=== PATIENT | male | born 1985 | race African-American/Black ===

== ENCOUNTER 2016-11-11 09:33 | Day surgery (SDC) | payer OTHER ==
[2016-11-11] VITALS (9 sets, daily range): BP systolic 107–118; BP diastolic 74–87; PULSE 78–115; TEMP 97.2–98.6
[~2016-11-11] VITALS: Ht 170.2 cm; Wt 84.1 kg
[2016-11-11 09:54] LABS: HEMATOCRIT 45.2 % (42.0-52.0); HEMOGLOBIN 14.7 g/dl (13.5-18.0); MEAN CELL VOLUME 98 fl (80.0-100.0); MEAN CORPUSCULAR HEMOGLOBIN 32 pg (27.0-31.0); MEAN CORPUSCULAR HGB CONC 33 g/dl (33.0-37.0); MEAN PLATELET VOLUME 9.4 fl (7.4-10.4); PLATELET COUNT 288 K/mm3 (130-400); RED BLOOD COUNT 4.63 M/mm3 (4.20-5.60); REDCELL DISTRIBUTION WIDTH-CV 12.8 % (11.5-14.5); WHITE BLOOD COUNT 9.3 K/mm3 (4.8-10.8)
[2016-11-11] MEDS ORDERED: LASIX 40MG TABL40 MG PO (09:55)
[2016-11-11] MEDS ORDERED: PRINIVIL5 MG PO (09:55)
[2016-11-11] MEDS ORDERED: TYLENOL 500MG500 MG PO (09:56)
[2016-11-11] MEDS ORDERED: CORLANOR5 MG PO (10:03)
[2016-11-11 10:09] LABS: CALCIUM 9.4 mg/dL (8.4-10.2); CREATININE, serum 1.61 mg/dL (0.66-1.25)
[2016-11-11] MEDS ORDERED: COUMADIN 5MG5 MG/TAB PO (10:20)
[2016-11-11 10:54] LABS: INR 2.8 (0.8-3.0); PROTHROMBIN TIME 32.8 SECONDS (9.7-12.8)
[2016-11-12 04:00] VITALS: BP 116/83; PULSE 103; TEMP 98.1
[2016-11-12 07:29] VITALS: BP 125/77; PULSE 62; TEMP 98.2
[2016-11-12 12:32] VITALS: BP 127/89; PULSE 62; TEMP 98
[2016-11-12] MEDS ORDERED: ENTRESTO 24 MG1 EACH PO (14:36)
[2016-11-12] MEDS ORDERED: CEPHALEXIN500 M1 PO (14:41)
== END 2016-11-12 15:18 | disposition home or self-care (01) ==
LOC: COL.CAR 09:33 → MEDICAL 14:44 → COL.CAR 11-12 15:18
PROVIDERS: Internal Medicine Cardiovascular Disease
DX: I50.22 Chronic systolic (congestive) heart failure (principal); I42.0 Dilated cardiomyopathy; I08.1 Rheumatic disorders of both mitral and tricuspid valves; Z82.49 Family history of ischemic heart disease and other diseases of the circulatory system; Z79.01 Long term (current) use of anticoagulants
CPT/HCPCS: OP; C1721; C1769; C1895; C1898; J0690; J2250; J3010; J7030

== ENCOUNTER 2016-12-15 05:36 | Emergency (ER) | payer OTHER ==
[~2016-12-15] VITALS: Ht 170.2 cm; Wt 81.8 kg
[~2016-12-15 05:36] MED LIST: CEPHALEXIN500 M1 PO; CORLANOR5 MG PO; COUMADIN 5MG5 MG/TAB PO; ENTRESTO 24 MG1 EACH PO; LASIX 40MG TABL40 MG PO; PRINIVIL5 MG PO; TYLENOL 500MG500 MG PO
[2016-12-15 05:39] VITALS: TEMP 98.2
[2016-12-15 06:26] LABS: BASO % 0.7 % (0.0-2.0); EOS # 0.1 (0.0-0.7); EOS % 0.8 % (0-4.0); GRAN # 4.2 (1.4-6.5); GRAN % 70.1 % (42.2-75.2); HEMATOCRIT 41.1 % (42.0-52.0); HEMOGLOBIN 13.7 g/dl (13.5-18.0); LYMPH # 1.2 (1.2-3.4); LYMPH % 19.9 % (20.0-51.0); MEAN CELL VOLUME 94 fl (80.0-100.0); MEAN CORPUSCULAR HEMOGLOBIN 31 pg (27.0-31.0); MEAN CORPUSCULAR HGB CONC 33 g/dl (33.0-37.0); MEAN PLATELET VOLUME 9.7 fl (7.4-10.4); MONO # 0.5 (0.1-0.6); MONO % 8.3 % (1.7-9.3); PLATELET COUNT 202 K/mm3 (130-400); RED BLOOD COUNT 4.36 M/mm3 (4.20-5.60); REDCELL DISTRIBUTION WIDTH-CV 13.3 % (11.5-14.5); WHITE BLOOD COUNT 5.9 K/mm3 (4.8-10.8)
[2016-12-15 06:30] LABS: INR 2.9 (0.8-3.0); PROTHROMBIN TIME 33.3 SECONDS (9.7-12.8)
[2016-12-15 06:32] LABS: ADJUSTED CALCIUM 9.5 mg/dL (8.4-10.2); ALBUMIN 3.2 gm/dL (3.5-5.0); BILIRUBIN,TOTAL 2.8 mg/dL (0.0-1.0); CALCIUM 8.9 mg/dL (8.4-10.2); CREATININE, serum 1.22 mg/dL (0.66-1.25); POTASSIUM 3.8 mmol/L (3.4-5.0); TOTAL PROTEIN 6.3 gm/dL (6.4-8.2)
[2016-12-15 06:52] LABS: TROPONIN-I 0.048 ng/mL (0.000-0.034)
[2016-12-15] MEDS ORDERED: ZOFRAN ODT4 MG PO (09:56)
[2016-12-15 10:10] VITALS: BP 115/77; PULSE 107
== END 2016-12-15 10:13 | disposition home or self-care (01) ==
LOC: COL.ER 05:36
PROVIDERS: Emergency Medicine
DX: R11.2 Nausea with vomiting, unspecified (principal); I25.10 Atherosclerotic heart disease of native coronary artery without angina pectoris; Z95.810 Presence of automatic (implantable) cardiac defibrillator; Z79.01 Long term (current) use of anticoagulants
CPT/HCPCS: J2550

== ENCOUNTER 2016-12-19 14:27 | Inpatient (IN) | payer OTHER ==
[~2016-12-19] VITALS: Ht 170.2 cm; Wt 83.0 kg
[~2016-12-19 14:27] MED LIST changes: +ZOFRAN ODT4 MG PO
[2016-12-19 14:34] VITALS: BP 114/73; PULSE 106; TEMP 98.5
[2016-12-19] MEDS ORDERED: CHERATUSSIN AC120 ML PO (15:20)
[2016-12-19] MEDS ORDERED: ENTRESTO 24 MG1 EACH PO (15:22)
[2016-12-19 17:33] LABS: ADD PATHOLOGY DIFF REVIEW NO
[2016-12-19 17:34] LABS: HEMATOCRIT 42.1 % (42.0-52.0); HEMOGLOBIN 13.8 g/dl (13.5-18.0); MEAN CELL VOLUME 95 fl (80.0-100.0); MEAN CORPUSCULAR HEMOGLOBIN 31 pg (27.0-31.0); MEAN CORPUSCULAR HGB CONC 33 g/dl (33.0-37.0); MEAN PLATELET VOLUME 9.1 fl (7.4-10.4); PLATELET COUNT 218 K/mm3 (130-400); RED BLOOD COUNT 4.43 M/mm3 (4.20-5.60); WHITE BLOOD COUNT 8.6 K/mm3 (4.8-10.8)
[2016-12-19 17:44] LABS: ADJUSTED CALCIUM 9.3 mg/dL (8.4-10.2); ALBUMIN 3.3 gm/dL (3.5-5.0); CALCIUM 8.7 mg/dL (8.4-10.2); CREATININE, serum 1.18 mg/dL (0.66-1.25); POTASSIUM 3.8 mmol/L (3.4-5.0); TOTAL PROTEIN 6.3 gm/dL (6.4-8.2)
[2016-12-19 18:27] LABS: BAND 1 % (0-10); METAMYELOCYTE 1 % (0-0); NEUTROPHILS 78 % (42.0-75.2); PLATELET ESTIMATE NORMAL (NORMAL); TOTAL CELLS COUNTED 100
[2016-12-19 22:00] LABS: INR 2.5 (0.8-3.0); PROTHROMBIN TIME 28.2 SECONDS (9.7-12.8)
[2016-12-19 22:20] VITALS: BP 103/68; PULSE 114; TEMP 99.2
[2016-12-20] VITALS (13 sets, daily range): BP systolic 99–140; BP diastolic 58–108; PULSE 102–121; TEMP 97.4–99.4
[2016-12-20 07:54] LABS: PROTHROMBIN TIME 22.9 SECONDS (9.7-12.8)
[2016-12-20] MEDS ORDERED: SINGULAIR 110 MG/TAB PO (19:17)
[2016-12-20] MEDS ORDERED: DETROL 2MG TAB2 MG PO (19:19)
[2016-12-20] MEDS ORDERED: KLONOPIN 0.5MG0.5 MG PO (19:21)
[2016-12-20] MEDS ORDERED: SEROQUEL 2525 MG/TAB PO (19:23)
[2016-12-20 22:17] LABS: INR 1.7 (0.8-3.0); PROTHROMBIN TIME 19.4 SECONDS (9.7-12.8)
[2016-12-21 03:33] VITALS: BP 107/61; PULSE 111; TEMP 98
[2016-12-21 07:55] LABS: INR 1.6 (0.8-3.0)
[2016-12-21 08:20] LABS: ADJUSTED CALCIUM 9.3 mg/dL (8.4-10.2); BILIRUBIN,TOTAL 3.6 mg/dL (0.0-1.0); CALCIUM 8.5 mg/dL (8.4-10.2); CREATININE, serum 1.05 mg/dL (0.66-1.25); POTASSIUM 3.7 mmol/L (3.4-5.0); TOTAL PROTEIN 6.2 gm/dL (6.4-8.2)
[2016-12-21 16:00] VITALS: BP 110/70; PULSE 107; TEMP 98.4
[2016-12-21 22:32] VITALS: BP 112/75; PULSE 106; TEMP 98.2
[2016-12-22 01:46] VITALS: BP 100/66; PULSE 101; TEMP 98.4
[2016-12-22 05:38] VITALS: BP 109/67; PULSE 106; TEMP 97.4
[2016-12-22 07:26] LABS: BASO % 0.2 % (0.0-2.0); GRAN # 10.8 (1.4-6.5); GRAN % 88.8 % (42.2-75.2); HEMATOCRIT 42.9 % (42.0-52.0); HEMOGLOBIN 13.8 g/dl (13.5-18.0); LYMPH # 0.7 (1.2-3.4); LYMPH % 5.7 % (20.0-51.0); MEAN CELL VOLUME 98 fl (80.0-100.0); MEAN CORPUSCULAR HEMOGLOBIN 31 pg (27.0-31.0); MEAN CORPUSCULAR HGB CONC 32 g/dl (33.0-37.0); MEAN PLATELET VOLUME 10.1 fl (7.4-10.4); MONO # 0.6 (0.1-0.6); MONO % 4.8 % (1.7-9.3); PLATELET COUNT 236 K/mm3 (130-400); REDCELL DISTRIBUTION WIDTH-CV 13.5 % (11.5-14.5); WHITE BLOOD COUNT 12.2 K/mm3 (4.8-10.8)
[2016-12-22 08:00] VITALS: BP 101/77; PULSE 118; TEMP 97.5
[2016-12-22 08:06] LABS: ADJUSTED CALCIUM 9.7 mg/dL (8.4-10.2); ALBUMIN 2.8 gm/dL (3.5-5.0); BILIRUBIN,TOTAL 2.3 mg/dL (0.0-1.0); CALCIUM 8.7 mg/dL (8.4-10.2); CREATININE, serum 0.89 mg/dL (0.66-1.25); MAGNESIUM 1.9 mg/dL (1.6-2.3); POTASSIUM 4.6 mmol/L (3.4-5.0); TOTAL PROTEIN 5.9 gm/dL (6.4-8.2)
[2016-12-22 12:00] VITALS: BP 103/64; PULSE 111; TEMP 97.8
[2016-12-22 16:00] VITALS: BP 100/67; PULSE 124; TEMP 97.7
[2016-12-22 20:14] VITALS: BP 108/60; PULSE 117; TEMP 98.1
[2016-12-23 00:48] VITALS: BP 98/59; PULSE 102; TEMP 97.7
[2016-12-23 04:45] VITALS: BP 96/57; PULSE 97; TEMP 98.4
[2016-12-23 07:39] LABS: BASO % 0.1 % (0.0-2.0); EOS % 0.2 % (0-4.0); GRAN # 10.3 (1.4-6.5); GRAN % 82.4 % (42.2-75.2); HEMATOCRIT 42.4 % (42.0-52.0); HEMOGLOBIN 13.8 g/dl (13.5-18.0); LYMPH # 1.1 (1.2-3.4); LYMPH % 9.1 % (20.0-51.0); MEAN CELL VOLUME 97 fl (80.0-100.0); MEAN CORPUSCULAR HEMOGLOBIN 32 pg (27.0-31.0); MEAN CORPUSCULAR HGB CONC 33 g/dl (33.0-37.0); MEAN PLATELET VOLUME 10.1 fl (7.4-10.4); MONO % 7.8 % (1.7-9.3); PLATELET COUNT 270 K/mm3 (130-400); RED BLOOD COUNT 4.38 M/mm3 (4.20-5.60); WHITE BLOOD COUNT 12.5 K/mm3 (4.8-10.8)
[2016-12-23 07:40] LABS: CALCIUM 8.9 mg/dL (8.4-10.2); CREATININE, serum 0.89 mg/dL (0.66-1.25); MAGNESIUM 1.8 mg/dL (1.6-2.3); POTASSIUM 4.5 mmol/L (3.4-5.0)
[2016-12-23 09:18] VITALS: BP 109/50; PULSE 80; TEMP 97.3
[2016-12-23] MEDS ORDERED: LASIX 40MG TABL40 MG PO (11:18)
[2016-12-23] MEDS ORDERED: ELIQUIS 5MG PO (11:30)
[2016-12-23 14:19] VITALS: BP 95/56; PULSE 104; TEMP 98.6
== END 2016-12-23 14:45 | disposition home or self-care (01) | DRG 417 ==
LOC: SURG 14:27
PROVIDERS: Internal Medicine; Nurse Practitioner Family; Surgery
PROC: 0FJB8ZZ Inspection of Hepatobiliary Duct, Via Natural or Artificial Opening Endoscopic (ICD-10-PCS; 2016-12-20)
PROC: BF131ZZ Fluoroscopy of Gallbladder and Bile Ducts using Low Osmolar Contrast (ICD-10-PCS; 2016-12-20)
PROC: BF131ZZ Fluoroscopy of Gallbladder and Bile Ducts using Low Osmolar Contrast (ICD-10-PCS; 2016-12-21)
PROC: 0FT44ZZ Resection of Gallbladder, Percutaneous Endoscopic Approach (ICD-10-PCS; principal; 2016-12-21 10:00)
DX: K80.12 Calculus of gallbladder with acute and chronic cholecystitis without obstruction (principal); I50.23 Acute on chronic systolic (congestive) heart failure; I42.0 Dilated cardiomyopathy; E87.1 Hypo-osmolality and hyponatremia; Z79.01 Long term (current) use of anticoagulants; Z95.0 Presence of cardiac pacemaker; I27.2 Other secondary pulmonary hypertension; I11.0 Hypertensive heart disease with heart failure
CPT/HCPCS: 99223-AI; 99232-AI; 99238; C1769; J1100; J1170; J1200; J1650; J1940; J2270; J2405; J2704; J2710; J3010; J7030; Q9967